=== PATIENT | female | born 1970 | race Two or more races ===

== ENCOUNTER 2020-12-09 08:45 | Outpatient (CLI) | payer OTHER | END 2020-12-09 08:54 | disposition home or self-care (01) | LOC: LAB 08:45 | PROVIDERS: ATTEND Psychiatry & Neurology Neurology | DX: D64.89 Other specified anemias (principal); E11.9 Type 2 diabetes mellitus without complications; E78.00 Pure hypercholesterolemia, unspecified; E03.8 Other specified hypothyroidism; D51.0 Vitamin B12 deficiency anemia due to intrinsic factor deficiency; E72.10 Disorders of sulfur-bearing amino-acid metabolism, unspecified; K76.1 Chronic passive congestion of liver; D72.818 Other decreased white blood cell count; M85.89 Other specified disorders of bone density and structure, multiple sites; E55.9 Vitamin D deficiency, unspecified; K66.0 Peritoneal adhesions (postprocedural) (postinfection); K91.2 Postsurgical malabsorption, not elsewhere classified; D50.8 Other iron deficiency anemias; D51.8 Other vitamin B12 deficiency anemias; D68.8 Other specified coagulation defects; R97.8 Other abnormal tumor markers; R97.0 Elevated carcinoembryonic antigen [CEA]; D66 Hereditary factor VIII deficiency ==

== ENCOUNTER → 2021-04-28 07:16 | Outpatient (CLI) | payer OTHER | END | disposition home or self-care (01) | LOC: LAB 07:16 | PROVIDERS: ATTEND Internal Medicine Hematology & Oncology | DX: K76.89 Other specified diseases of liver (principal); D72.818 Other decreased white blood cell count; M85.89 Other specified disorders of bone density and structure, multiple sites; E55.9 Vitamin D deficiency, unspecified; K66.0 Peritoneal adhesions (postprocedural) (postinfection); K91.2 Postsurgical malabsorption, not elsewhere classified; D50.8 Other iron deficiency anemias; R79.89 Other specified abnormal findings of blood chemistry; I10 Essential (primary) hypertension; R74.02 Elevation of levels of lactic acid dehydrogenase [LDH] ==

== ENCOUNTER 2021-08-25 07:47 | Outpatient (CLI) | payer OTHER | END 2021-08-25 07:55 | disposition home or self-care (01) | LOC: LAB 07:47 | PROVIDERS: ATTEND Internal Medicine Hematology & Oncology | DX: D72.818 Other decreased white blood cell count (principal); M85.89 Other specified disorders of bone density and structure, multiple sites; K66.0 Peritoneal adhesions (postprocedural) (postinfection); K91.2 Postsurgical malabsorption, not elsewhere classified ==

== ENCOUNTER 2021-11-10 08:23 | Outpatient (CLI) | payer OTHER | END 2021-11-10 08:56 | disposition home or self-care (01) | LOC: LAB 08:23 | PROVIDERS: ATTEND Internal Medicine Endocrinology, Diabetes & Metabolism | DX: N95.1 Menopausal and female climacteric states (principal); E11.65 Type 2 diabetes mellitus with hyperglycemia; I11.0 Hypertensive heart disease with heart failure; D53.9 Nutritional anemia, unspecified; N39.0 Urinary tract infection, site not specified; E78.2 Mixed hyperlipidemia; E20.0 Idiopathic hypoparathyroidism; E61.3 Manganese deficiency; E61.2 Magnesium deficiency; M81.0 Age-related osteoporosis without current pathological fracture ==

== ENCOUNTER 2022-05-11 07:17 | Outpatient (CLI) | payer OTHER | END 2022-05-11 07:27 | disposition home or self-care (01) | LOC: LAB 07:17 | DX: D50.8 Other iron deficiency anemias (principal); I10 Essential (primary) hypertension; D51.3 Other dietary vitamin B12 deficiency anemia; D51.1 Vitamin B12 deficiency anemia due to selective vitamin B12 malabsorption with proteinuria; D68.8 Other specified coagulation defects ==

== ENCOUNTER 2022-08-10 08:05 | Outpatient (CLI) | payer OTHER | END 2022-08-10 08:06 | disposition home or self-care (01) | LOC: LAB 08:05 | PROVIDERS: ATTEND Internal Medicine Hematology & Oncology | DX: D53.9 Nutritional anemia, unspecified (principal); I11.0 Hypertensive heart disease with heart failure; N39.0 Urinary tract infection, site not specified; E11.9 Type 2 diabetes mellitus without complications; E04.9 Nontoxic goiter, unspecified; D72.818 Other decreased white blood cell count; M85.89 Other specified disorders of bone density and structure, multiple sites; E55.9 Vitamin D deficiency, unspecified; K66.0 Peritoneal adhesions (postprocedural) (postinfection); K91.2 Postsurgical malabsorption, not elsewhere classified; M54.50 Low back pain, unspecified; I10 Essential (primary) hypertension; R77.8 Other specified abnormalities of plasma proteins; M06.4 Inflammatory polyarthropathy; E21.0 Primary hyperparathyroidism ==